=== PATIENT | male | born 1965 | race American Indian/Alaskan Native ===

== ENCOUNTER 2016-08-23 08:11 | Outpatient (CLI) | payer OTHER ==
--- NOTE | 2016-08-23 15:01 | Magnetic Resonance Report ---
MRI UPPER EXTREMITY JOINT LEFT WITHOUT CONTRAST HISTORY: Left shoulder pain. TECHNIQUE: Multisequence, multiplanar MR without contrast. COMPARISON: None. FINDINGS: There is marked thickening and increased intrinsic signal in the distal infraspinatus tendon near its insertion site on the proximal humerus. There is at least a partial articular surface tear of the distal infraspinatus tendon estimated at greater than 50% thickness. There is probably a pinhole full-thickness component of this tear as well. No large full thickness tear. There is mild thickening and increased signal in the subscapularis tendon consistent with tendinosis. The supraspinatus tendon, teres minor and biceps tendon are intact. There is no gross labral defect or separation. No SLAP lesion. The bone marrow signal is within normal limits. No fracture, dislocation or ligamentous injury. No bone lesion. Mild to moderate hypertrophic osteoarthritic changes are noted at the left acromioclavicular joint. There is a small joint effusion and trace fluid in the subdeltoid bursa. IMPRESSION: Markedly abnormal distal infraspinatus tendon. At least a partial tear along the articular surface is suspected which is estimated at greater than 50% thickness. There is likely a pinhole full-thickness component to this tear as well. Subscapularis tendinosis. Hypertrophic osteoarthritic changes at the acromioclavicular joint. No definite findings of impingement syndrome.
== END 2016-08-23 08:12 | disposition home or self-care (01) ==
LOC: MRI 08:11
PROVIDERS: ATTEND Internal Medicine
DX: M25.412 Effusion, left shoulder (principal); M25.812 Other specified joint disorders, left shoulder; R53.1 Weakness